=== PATIENT | female | born 1980 | race Caucasian/White ===

== ENCOUNTER 2016-11-02 19:20 | Outpatient (CLI) | payer OTHER ==
[~2016-11-02] VITALS: Ht 165.1 cm; Wt 73.5 kg
[2016-11-02] MEDS: LACTATED RINGER'S 1000ML 1,000 ML IV SCH ×2 (21:10→21:57)
--- NOTE | 2016-11-02 21:24 | HISTORY & PHYSICAL EXAMINATION ---
DATE OF ADMISSION: 11/02/2016 CHIEF COMPLAINT: Uterine contractions, twin intrauterine at 30 weeks 5 days, history of myomectomy entering the uterine cavity. HISTORY OF PRESENT ILLNESS: The patient is a 36-year-old 3, para 2. She had a myomectomy in 2014, it was about 2 years ago. She had 10 cm myoma removed in the posterior uterus. We did enter the uterine cavity. She did wait a year to try to become , presently with natural twins. Her due date is 01/07/2017. She was previously transferred to [facility] at 25 weeks when she had some bleeding, contractions and threatened premature labor. At that time, she had 2 doses of Celestone 12 mg 24 hours apart and then she had Celestone 12 mg 24 hours apart repeated at 28 weeks. Since that time, she has been on Procardia. She has had a lot of trouble with back pain and contractions and came into the hospital for evaluation. The contractions starting to get more regular at about 1:00 p.m. the day of admission and now started to be associated with some light bloody discharge. At the time of admission, monitoring looked good on both twins. PAST MEDICAL HISTORY: She has a boy and a girl, both in good health. ALLERGIES: She has no known drug allergies. PAST SURGICAL HISTORY: She has had a large ovarian cyst removed. She had a myomectomy in 2014. SOCIAL HISTORY: No smoking, no alcohol intake, was previously employed but stopped her job due to her . FAMILY HISTORY: Mom is 58, in good health. Father 59, in good health. One sister and 2 brothers in good health. REVIEW OF SYSTEMS: The patient does have a history of migraines. PHYSICAL EXAMINATION: GENERAL: Well-developed, well-nourished 36-year-old white female in mild distress. EYES: Conjunctivae are pink. Sclerae white. No evidence of jaundice. EARS: Had normal light reflex bilaterally. HEART: Had a regular rhythm. S1 and S2 were normal. BREASTS: Status post augmentation. ABDOMEN: Consistent with a 30-week twin . No CVA tenderness. There is no fundal tenderness. PELVIC: Cervix posterior, about 90% effaced, 2 cm. MUSCULOSKELETAL: Revealed no calf tenderness. IMPRESSIONS OF THIS CASE: Status post breast augmentation, status post removal of a large myoma in 2014, twin and premature labor.
[2016-11-02 21:43] VITALS: Ht 165.1 cm; Wt 73.5 kg
[2016-11-02] MEDS ORDERED: NIFEdipine 10 MG CAP PO SCH (21:43)
[2016-11-02] MEDS ORDERED: NIFE10CA20 PO (21:47)
[2016-11-02] MEDS ORDERED: PRENTAB26 PO (21:47)
== END 2016-11-02 22:30 | disposition short-term general hospital (02) ==
LOC: C.OPB 19:20 → C.LD 19:20 → C.OPB 22:30
PROVIDERS: ATTEND Obstetrics & Gynecology
DX: O62.9 Abnormality of forces of labor, unspecified (principal); Z3A.30 30 weeks gestation of pregnancy

== ENCOUNTER → 2016-11-02 | Outpatient (CLI) | payer OTHER ==
[~2016-11-02] MED LIST: NIFE10CA20 PO; PRENTAB26 PO; TYL325X PO
== END | disposition home or self-care (01) ==
LOC: C.LABSPEC 11:18
PROVIDERS: ATTEND Obstetrics & Gynecology
DX: O99.53 Diseases of the respiratory system complicating the puerperium (principal); J02.9 Acute pharyngitis, unspecified; O30.003 Twin pregnancy, unspecified number of placenta and unspecified number of amniotic sacs, third trimester

== ENCOUNTER 2016-11-13 10:42 | Outpatient (CLI) | payer OTHER ==
[~2016-11-13 10:42] MED LIST changes: -TYL325X PO
== END 2016-11-13 11:20 | disposition home or self-care (01) ==
LOC: C.LD 10:42 → C.OPB 10:42
PROVIDERS: ATTEND Obstetrics & Gynecology
DX: O30.003 Twin pregnancy, unspecified number of placenta and unspecified number of amniotic sacs, third trimester (principal); Z3A.32 32 weeks gestation of pregnancy

== ENCOUNTER 2016-11-17 09:06 | Outpatient (CLI) | payer OTHER ==
--- NOTE | 2016-11-20 08:31 | EDITING REQUIRED CODING QUERY ---
DIAGNOSIS NEEDED To promote full compliance with coding requirements relating to patient care, physician participation is requested in all cases of medical record coder uncertainty. Please assist us with the question(s) below: Coding Question: The patient received care in labor and delivery on 11/17/16 as noted within the record. Please document the diagnosis that is being addressed by the medication/treatment. Provider Response: DIAGNOSIS:twin Prior myomectomy Thank you for your assistance, Addie Murillo - Oliver Filter Operator
== END 2016-11-17 09:50 | disposition home or self-care (01) ==
LOC: C.OPB 09:06 → C.LD 09:06 → C.OPB 09:50
PROVIDERS: ATTEND Obstetrics & Gynecology
DX: O30.003 Twin pregnancy, unspecified number of placenta and unspecified number of amniotic sacs, third trimester (principal); Z3A.32 32 weeks gestation of pregnancy

== ENCOUNTER 2016-11-20 10:31 | Outpatient (CLI) | payer OTHER ==
[~2016-11-20] VITALS: Ht 165.1 cm; Wt 75.0 kg
[2016-11-20 11:15] VITALS: Ht 165.1 cm; Wt 75.0 kg
--- NOTE | 2016-11-25 10:57 | EDITING REQUIRED CODING QUERY ---
DIAGNOSIS NEEDED To promote full compliance with coding requirements relating to patient care, physician participation is requested in all cases of keyboarding clerk uncertainty. Please assist us with the question(s) below: Coding Question: The patient received care in labor and delivery on 11/20/16 as noted within the record. Please document the diagnosis that is being addressed by the medication/treatment. Provider Response: DIAGNOSIS:twin Prior myomectomy Thank you for your assistance, Addie Murillo - Yarn Examiner Skeins
== END 2016-11-20 11:20 | disposition home or self-care (01) ==
LOC: C.OPB 10:31 → C.LD 10:31 → C.OPB 11:20
PROVIDERS: ATTEND Obstetrics & Gynecology
DX: O30.003 Twin pregnancy, unspecified number of placenta and unspecified number of amniotic sacs, third trimester (principal); Z3A.33 33 weeks gestation of pregnancy

== ENCOUNTER 2016-11-21 23:06 | Inpatient (IN) | payer OTHER ==
[~2016-11-21] VITALS: Ht 165.1 cm; Wt 75.0 kg
[2016-11-22] VITALS (20 sets, daily range): BP systolic 109–150; BP diastolic 74–92; PULSE 57–137; TEMP 35–36.8; O2SAT 88–99; Ht 165.1 cm; Wt 75.0 kg
[2016-11-22] MEDS ORDERED: CITRIC ACID/SODIUM CITRATE 15 ML UDC ONE (00:23)
[2016-11-22] MEDS ORDERED: CITRIC ACID/SODIUM CITRATE 15 ML UDC PO ONE (00:30)
[2016-11-22] MEDS ORDERED: CEFOXITIN IV 2,000 MG in DEXTROSE 5% 50ML 50 ML IV ONE (00:30)
--- NOTE | 2016-11-22 00:31 | HISTORY & PHYSICAL EXAMINATION ---
DATE OF ADMISSION: 11/21/2016 CHIEF COMPLAINT: Twin at 33 weeks 2 days, vaginal bleeding and active labor. HISTORY OF PRESENT ILLNESS: The patient is a 36-year-old 3, para 2, general health is good. She has had 2 previous vaginal deliveries and she also had status post breast augmentation 2 years ago. She had removal of a 10 cm uterine fibroid, the defect went right into the endometrial cavity. She then conceived with natural set of twins. Her due date being 01/07/2017. It was diagnosed with a first trimester ultrasound. She has been hospitalized several times, transferred to [facility] at least twice, once at about 25 weeks and once at about 31 weeks. She has been maintained on Procardia 10 mg and she had 2 shots of Celestone at about 27 weeks, another 2 shots at about 30, and she had 1 shot of Celestone about 2 days. She has been having contractions off and on for a long time. One of her transfers to [facility] was for suspected premature labor; however, contractions started to get harder today at about 11:00 and she contracted all day, and at 7, they began to become frequently and she had to breathe through the contractions. On admission to labor and delivery, she was 5 cm dilated, cervix was paper thin and she had a red bleeding. PAST MEDICAL HISTORY: She has 2 children in good health, 1 child has some mental problems. ALLERGIES: She has no known drug allergies. PAST SURGICAL HISTORY: She had breast augmentation 7 years ago and she had removal of a large 10 cm myoma 2 years ago. SOCIAL HISTORY: No smoking. No alcohol intake. She is self employed. FAMILY HISTORY: Mom is 58, is moderately in good health. Father 59, in excellent health. Two brothers and 1 sister, in good health. REVIEW OF SYSTEMS: She has had some complaints of tension headaches over the last weeks. No history of rheumatic fever, heart disease, heart murmur, diabetes, tuberculosis. PHYSICAL EXAMINATION: GENERAL: Well developed, well-nourished 36-year-old white female, alert, oriented x3 and cooperative in intermittent periods of distress. EYES: Conjunctivae are pink, sclerae white, no evidence of jaundice. EARS: Had normal light reflex bilaterally. NOSE: Had normal mucosa. Septum is midline. There were no polyps. THROAT: Mouth had no erythema or evidence of infection. Teeth are in good state of repair. HEAD: Normocephalic, normal distribution of hair. NECK: Supple. Trachea midline. Thyroid is not enlarged. There is no adenopathy appreciated. Both carotids are of good intensity. CHEST: Clear to auscultation and percussion. No wheezes, rales or rhonchi appreciated. HEART: Regular rhythm. S1, S2 are normal. ABDOMEN: About 45 cm fundal height consistent with twin intrauterine . Contractions were palpable sometimes every 2-3 minutes and sometimes they would space to 5-6. There is a well-healed Pfannenstiel incisional scar. There was no calf tenderness. PELVIC: Revealed vertex presentation, membranes were bulging through the cervix 5 cm. Cervix was paper thin, she was bleeding. IMPRESSIONS OF THIS CASE: Status post breast augmentation, status post removal of large 10 cm myoma which went full thickness through the uterus, intrauterine at 33 weeks 2 days and active labor.
[2016-11-22] MEDS ORDERED: MoRPHine SULFATE PF 1 MG/ML 10 ML AMP/VIAL ONE (00:32)
[2016-11-22] MEDS ORDERED: FENTANYL CITRATE INJ 50 MCG/1 ML 2 ML VIAL ONE (00:32)
[2016-11-22 00:54] LABS: HEMATOCRIT 31.1 % (37-47); MEAN CELL VOLUME 89.6 fL (80-100); MEAN CORPUSCULAR HEMOGLOBIN 30.8 pg (25-34); MEAN CORPUSCULAR HGB CONC 34.4 g/dl (32-36); MEAN PLATELET VOLUME 10.9 fL (7.4-10.4); PLATELET COUNT 186 K/uL (130-400); RED BLOOD COUNT 3.47 M/uL (4.2-5.4); WHITE BLOOD COUNT 10.99 K/uL (4.8-10.8)
[2016-11-22] MEDS ORDERED: ONDANSETRON INJ 2 MG/ML 2 ML VIAL ONE (01:24)
[2016-11-22] MEDS ORDERED: OXYTOCIN INJ 10 UNITS/ML VIAL ONE (01:24)
[2016-11-22] MEDS ORDERED: KETOROLAC TROMETHAMINE 30 MG/ML VIAL ONE (01:24)
[2016-11-22 01:26] LABS: BASO % 0.2 %; BASO ABS # 0.02 K/uL (0-0.2); COMPLETE YES; EOS % 0.7 %; IG% 3.5 %; LYMPH % 19.2 %; LYMPH ABS # 2.11 K/uL (1.2-3.4); MONO % 9.2 %; NEUT % 67.2 %
[2016-11-22] MEDS ORDERED: BUPIVACAINE 0.5 % 5 MG/1 ML MPF 30ML VIAL IV ONE (01:45)
[2016-11-22] MEDS ORDERED: SENNA 8.6 MG TAB PO PRN (02:00)
[2016-11-22] MEDS ORDERED: DIPHTHERIA/TETANUS/PERTUSSIS 0.5 ML SYR/VIAL IM. ONE (02:00)
[2016-11-22] MEDS ORDERED: LANOLIN OINT EXT PRN ×2 (02:00)
[2016-11-22] MEDS ORDERED: MAGNESIUM HYDROXIDE SUSP 30 ML UDC PO PRN (02:00)
[2016-11-22] MEDS ORDERED: IBUPROFEN 600 MG TAB PO PRN (02:00)
[2016-11-22] MEDS ORDERED: BENZOCAINE 20% AER SPR 82.5 GM CAN EXT PRN (02:00)
[2016-11-22] MEDS ORDERED: HYDROCORTISONE ACETATE 25 MG SUPP PR PRN (02:00)
[2016-11-22] MEDS ORDERED: SUPERCREAM 0.870 % 15GM JAR EXT PRN (02:00)
[2016-11-22] MEDS ORDERED: OXYTOCIN INJ 20 UNITS in LACTATED RINGER'S 1000ML 1,000 ML IV SCH (02:15)
[2016-11-22] MEDS ORDERED: NALOXONE HCL INJ 0.08 MG in SYRINGE 1.8 ML IV PRN (02:37)
[2016-11-22] MEDS ORDERED: LACTATED RINGER'S 1000ML 500 ML IV PRN (02:37)
[2016-11-22] MEDS ORDERED: SODIUM CHLORIDE 0.9% 1000ML 1,000 ML IV PRN (02:37)
[2016-11-22] MEDS ORDERED: NALOXONE HCL INJ 1 MG in SODIUM CHLORIDE 0.9% 1000ML 1,000 ML IV PRN (02:37)
--- NOTE | 2016-11-22 02:42 | Anesthesiology Progress Note ---
Anesthesia Post Op Note Date & Time Nov 22, 2016 at 02:41 Notes Mental Status: alert / awake / arousable, participated in evaluation Pt Amnestic to Procedure: Yes Nausea / Vomiting: adequately controlled Pain: adequately controlled Airway Patency, RR, SpO2: stable & adequate BP & HR: stable & adequate Hydration State: stable & adequate Neuraxial Anesthesia: was administered, sensory block is resolving Anesthetic Complications: no major complications apparent
[2016-11-22] MEDS ORDERED: NO NARCOTICS OR SEDATIVES SCH (02:45)
[2016-11-22] MEDS ORDERED: ONDANSETRON INJ 2 MG/ML 2 ML VIAL IV PRN ×2 (02:45→19:00)
[2016-11-22] MEDS ORDERED: NALBUPHINE HCL INJ 10 MG/ML AMP IV PRN (02:45)
[2016-11-22] MEDS ORDERED: EpHEDrine SULFATE INJ 50 MG/ML AMP IV PRN (02:45)
[2016-11-22] MEDS ORDERED: PROMETHAZINE HCL INJ 25 MG in SODIUM CHLORIDE 0.9% 50ML 50 ML IV PRN (02:45)
[2016-11-22] MEDS ORDERED: MoRPHine SULFATE 2 MG/ML CARP IV PRN (02:45)
[2016-11-22] MEDS ORDERED: NALOXONE HCL 0.4 MG/1 ML VIAL/CARP IV PRN (02:45)
[2016-11-22] MEDS ORDERED: METOCLOPRAMIDE HCL INJ 20 MG in SODIUM CHLORIDE 0.9% 50ML 50 ML IV PRN (02:45)
[2016-11-22] MEDS ORDERED: MoRPHine SULFATE PF 1 MG/ML 10 ML AMP/VIAL EPI PRN (02:45)
[2016-11-22] MEDS ORDERED: MEPERIDINE HCL 25 MG/ML CARP IV PRN (02:45)
[2016-11-22] MEDS ORDERED: LORAZEPAM INJ 0.5 MG in SYRINGE 0.75 ML IV PRN (02:45)
[2016-11-22] MEDS ORDERED: DiphenhydrAMINE HCL 50 MG/ML VIAL IV PRN ×2 (02:45→19:00)
--- NOTE | 2016-11-22 03:56 | OPERATIVE REPORT ---
DATE OF OPERATION: 11/22/2016 OPERATION: Primary low segment section. INDICATIONS FOR SURGERY: Vaginal bleeding, active labor, intrauterine twin , history of prior full thickness myomectomy. PREOPERATIVE DIAGNOSES: History of myomectomy entering the endometrial cavity, active labor, twin , twin A vertex, twin B transverse lie. SURGEON: Dr. Zee. FAN BALANCER: Dr. Leon. ESTIMATED BLOOD LOSS: 500 mL. ANESTHESIA: Spinal. OPERATIVE FINDINGS AND PROCEDURE: The patient was brought to the OR table, correctly identified by armband and conversation. Spinal anesthesia was administered. Shelley catheter was inserted aseptically in the bladder connected to gravity drainage. Compression stockings were applied. Lower abdomen was painted with an alcohol based sterilizing solution. Midline incision was made in the abdomen secondary to the position of twin B. Incision was carried down to the anterior fascia. Fascia was visualized vertically. Recti muscles were . Peritoneum was carefully raised and entered. Incision was carried down to the pelvic brim and up towards the umbilicus. When we obtained good exposure, we used the bladder blade and then made an incision above the vesicouterine fold, undermined the bladder bluntly and entered the uterine cavity, extended it laterally with the 2 fingers and with fundal pressure delivered twin A, female, cut and clamped the cord. We were then able to rupture the second site and bring the head down of twin B. With fundal pressure, delivered twin B, another female. We then removed the placenta. Placenta was slightly difficult to remove and eventually, we got it out and we got the placenta out. We wipe the uterine cavity, cleaned with a dry sponge. We injected 10 units of Pitocin into the myometrium and brought the uterus out through the incision. We then sutured the myometrium in 2 layers, first interlocking chromic was used to approximate the myometrial layer. The fascial layer was approximated then over this with the heavy duty Vicryl and about 3 interrupted [id number] sutures were used to complete the fascial approximation. The peritoneal edges were then restored with a continuous chromic. Pelvis was cleansed of all blood clots and debris. Uterus, tubes, and ovaries were reinserted in the incision. Careful anatomical approximation of the anterior abdominal wall was performed. Peritoneum was closed with continuous suture of chromic catgut. The fascia was closed with PDS anchoring, 1 knot at the top of the fascial defect, 1 knot the bottom and coming up from the bottom up to the middle, from the top down to the middle and the 2 were tied together with the knot under the fascia. SubQ was approximated with interrupted plain and skin edges were approximated with staple clips. I attest to the content of the Intraoperative Record and any orders documented therein. Any exceptions are noted below. CHUCHO
[2016-11-22] MEDS ORDERED: FERROUS SULFATE 325 MG TAB PO SCH (08:00)
[2016-11-22] MEDS ORDERED: PRENATAL VITAMIN TAB PO SCH (08:00)
[2016-11-22] MEDS ORDERED: INFLUENZA ADMINISTRATION CHARGE ONE (09:00)
[2016-11-22] MEDS ORDERED: INFLUENZA VIRUS QUAD VACCINE 0.5 ML SYR IM. ONE (09:00)
[2016-11-22] MEDS: KETOROLAC TROMETHAMINE 30 MG/ML VIAL IV. PRN ×2 (09:22→16:26)
[2016-11-22] MEDS: DOCUSATE SODIUM 100 MG CAP PO SCH ×2 (09:25→21:00)
[2016-11-22] MEDS: SIMETHICONE 80 MG CHEW PO SCH ×4 (09:25→21:00)
--- NOTE | 2016-11-22 10:10 | Progress Note ---
Subjective Nov 22, 2016. Subjective conversation w/ patient Ambulation: limited ambulation Voiding: wells catheter in place Passing Gas: No Diet Tolerance: Clear Liquids Lochia: Small Review of Systems Constitutional: + fever Objective Vital Signs Date Time Temp Pulse Resp B/P Pulse Ox O2 Delivery O2 Flow Rate FiO2 11/22/16 08:00 16 97 11/22/16 07:00 20 97 11/22/16 06:31 18 97 Nasal Cannula 2.0 11/22/16 06:06 36.8 60 18 144/82 93 Nasal Cannula 2.0 11/22/16 05:30 Room Air 11/22/16 05:30 36.8 70 18 Room Air Physical Exam General Appearance: WELL-APPEARING Respiratory/Chest: lungs clear Abdomen: normal bowel sounds, non tender Fundus: Firm, Non-Tender Extremities: no pedal edema, no calf tenderness Laboratory Results Last 24 Hours Test 11/22/16 00:36 White Blood Count 10.99 K/uL Red Blood Count 3.47 M/uL Hemoglobin 10.7 g/dL Hematocrit 31.1 % Mean Corpuscular Volume 89.6 fL Mean Corpuscular Hemoglobin 30.8 pg Mean Corpuscular Hemoglobin Concent 34.4 g/dl Platelet Count 186 K/uL Mean Platelet Volume 10.9 fL Neutrophils (%) (Auto) 67.2 % Lymphocytes (%) (Auto) 19.2 % Monocytes (%) (Auto) 9.2 % Eosinophils (%) (Auto) 0.7 % Basophils (%) (Auto) 0.2 % Neutrophils # (Auto) 7.38 K/uL Lymphocytes # (Auto) 2.11 K/uL Monocytes # (Auto) 1.01 K/uL Eosinophils # (Auto) 0.08 K/uL Basophils # (Auto) 0.02 K/uL RDW Standard Deviation 45.7 fL RDW Coefficient of Variation 14.0 % Immature Granulocyte % (Auto) 3.5 % Immature Granulocyte # (Auto) 0.39 K/uL Nucleated RBC Absolute Count (auto) 0.10 K/uL Nucleated Red Blood Cells % 0.9 % Assessment and Plan Post-Op Day#: 0
[2016-11-22 19:00] LABS: HEMATOCRIT 35.5 % (37-47); MEAN CELL VOLUME 88.1 fL (80-100); MEAN CORPUSCULAR HEMOGLOBIN 30.3 pg (25-34); MEAN PLATELET VOLUME 10.4 fL (7.4-10.4); PLATELET COUNT 141 K/uL (130-400); RED BLOOD COUNT 4.03 M/uL (4.2-5.4); WHITE BLOOD COUNT 9.42 K/uL (4.8-10.8)
[2016-11-22] MEDS ORDERED: MEPERIDINE HCL 50 MG/ML CARP IV PRN (19:00)
[2016-11-22] MEDS ORDERED: KETOROLAC TROMETHAMINE 30 MG/ML VIAL IV. PRN (19:00)
[2016-11-22] MEDS ORDERED: MEPERIDINE HCL 75 MG/ML CARP IV PRN (19:00)
[2016-11-22] MEDS ORDERED: OXYCODONE/ACETAMINOPHEN 5-325 TAB PO PRN ×2 (19:00)
[2016-11-22] MEDS ORDERED: ZOLPIDEM TARTRATE 5 MG TAB PO PRN (19:00)
[2016-11-22] MEDS ORDERED: DC INTRASPINAL MORPHINE SCH (19:00)
[2016-11-22 19:14] LABS: INR 0.9 (0.9-1.1); PARTIAL THROMBOPLASTIN RATIO 1.1; PROTHROMBIN TIME (PATIENT) 9.3 SECONDS (9.0-12.0)
--- NOTE | 2016-11-22 19:15 | DIAGNOSTIC IMAGING REPORT ---
CHEST ONE VIEW PORTABLE CLINICAL HISTORY: sudden diaphoresis, hypoxia dyspnea COMPARISON STUDY: 09/06/2006 FINDINGS: Findings consistent with mild pulmonary edema. The diaphragms are smooth. There are no consolidative infiltrates. IMPRESSION: Mild pulmonary edema Electronically signed by: Godfrey Chávez M.D. 11/22/2016 7:14 PM Dictated Date/Time: 11/22/2016 7:13 PM
[2016-11-22] MEDS ORDERED: FUROSEMIDE 40 MG/4 ML VIAL ONE (19:23)
[2016-11-22] MEDS ORDERED: FUROSEMIDE 40 MG/4 ML VIAL IV STA (19:26)
[2016-11-22 19:30] LABS: MEAN CORPUSCULAR HGB CONC 34.4 g/dl (32-36)
[2016-11-22 19:31] LABS: COMPLETE YES; EOSINOPHIL % 0.9 %; LYMPH ABS # 1.97 K/uL (1.2-3.4); LYMPHOCYTE % 20.9 %; META ABS # 0.16 K/uL (0-0); METAMYELOCYTE % 1.7 %; MYELOCYTE % 0.9 %; NEUTROPHILS % 74.7 %
[2016-11-22 19:32] LABS: ALB/GLOB RATIO 0.6 (0.9-2); ALKALINE PHOSPHATASE 161 U/L (45-117); ALT/SGPT 15 U/L (12-78); AST/SGOT 32 U/L (15-37); BLOOD UREA NITROGEN 14 mg/dl (7-18); BUN/CREATININE RATIO 16.8 (10-20); CALCIUM 7.9 mg/dl (8.5-10.1); CARBON DIOXIDE 23 mmol/L (21-32); CHLORIDE 105 mmol/L (98-107); CREATININE 0.86 mg/dl (0.60-1.20); GLUCOSE 73 mg/dl (70-99); POTASSIUM 4.3 mmol/L (3.5-5.1); SODIUM 140 mmol/L (136-145); URIC ACID 6.5 mg/dl (2.6-7.2)
[2016-11-22] MEDS ORDERED: NURSING VERBAL MED ORDER ONE (19:45)
[2016-11-22] MEDS ORDERED: FUROSEMIDE INJ 40 MG in SYRINGE 0 ML IV SCH (20:00)
[2016-11-22] MEDS ORDERED: PIPERACILLIN/TAZOBACTAM 4.5 GM/100ML D5W IV STA (20:08)
[2016-11-22] MEDS ORDERED: ACETAMINOPHEN 325 MG TAB PO PRN (20:15)
--- NOTE | 2016-11-22 20:29 | Critical Care Consultation ---
Critical Care Consultation Date of Consultation: Nov 22, 2016. Attending Physician: Say Zee M.D. Reason for Consultation: Acute hypoxia History of Present Illness Patient is a 36-year-old female who delivered 2 spontaneous twin gestations via section secondary to history of a myomectomy. She was having a routine postoperative course until she developed acute shortness of breath and hypoxia despite supplemental oxygen. This prompted a code purple, this is when I evaluated the patient. Patient was experiencing significant respiratory distress was tachycardic and hypertensive approximately 170s systolic normal diastolic. A limited bedside ultrasound revealed diffuse B lines across both lung lee, she appeared to have a decreased EF, and a 2. compression test of the common femoral and popliteal veins were negative for DVT. Suspecting a cardiomyopathy she was given 40 mg of IV Lasix, 1 sublingual mitral glycerin was plowed her blood pressure down to 140s over 80, and she was transferred to the ICU for further evaluation. A stat echocardiogram was ordered and Dr. Zelaya is evaluating at the bedside. Past Medical/Surgical History #1 postop day 0 from a section for twin at 33 weeks and 2 days in active labor #2 breast augmentation #3 history of myomectomy Social History Smoking Status: Never Smoker Marital Status: single Housing Status: lives with significant other Allergies Coded Allergies: Hydrocodone (Verified Adverse Reaction, Unknown, NAUSEA VOMITING, 11/22/16) Oxycodone (Verified Adverse Reaction, Unknown, NAUSEA VOMITING, 11/22/16) Home Medications Scheduled Multivit/Min/Iron/Fol Ac/Pren ( Vitamin), 1 TAB PO DAILY Miscellaneous Medications Nifedipine (Procardia), 10 MG PO Current Inpatient Medications Current Inpatient Medications Medications (Trade) Dose Ordered Sig/Sae Route Start Time Stop Time Status Last Admin Dose Admin Oxytocin/Lactated Ringer's (Pitocin Inj/Lr 1000ml) 1,002 ml @ 125 mls/hr Q8H1M IV 11/22/16 02:15 11/23/16 02:17 11/22/16 12:13 125 MLS/HR Ketorolac Tromethamine (Toradol Inj) 30 mg Q6H PRN IV. 11/22/16 19:00 11/27/16 18:59 Meperidine HCl (Demerol Inj) 50 mg Q4H PRN IV 11/22/16 19:00 3/5/17 18:59 Meperidine HCl (Demerol Inj) 75 mg Q4H PRN IV 11/22/16 19:00 12/06/16 18:59 Oxycodone/ Acetaminophen (Percocet 5-325mg Tab) 1 tab Q4H PRN PO 11/22/16 19:00 12/06/16 18:59 Oxycodone/ Acetaminophen (Percocet 5-325mg Tab) 2 tab Q4H PRN PO 11/22/16 19:00 12/06/16 18:59 Ibuprofen (Motrin Tab) 600 mg Q4H PRN PO 11/22/16 02:00 12/22/16 01:59 Ondansetron HCl (Zofran Inj) 4 mg Q4H PRN IV 11/22/16 19:00 12/22/16 18:59 Prenat Multivit/ Roving Carrier/Iron/Folic Ac ( Vitamin Tab) 1 tab DAILY PO 11/22/16 08:00 12/22/16 07:59 11/22/16 09:25 1 TAB Bisacodyl (Dulcolax Tab) 5 mg HS ONCE PO 11/23/16 22:00 11/23/16 22:01 Bisacodyl (Dulcolax Supp) 10 mg PRN PRN AL 11/24/16 02:00 12/24/16 01:59 Docusate Sodium (coLACE CAP) 100 mg BID PO 11/22/16 08:00 12/22/16 07:59 11/22/16 09:25 100 MG Magnesium Hydroxide (Milk Of Magnesia Susp) 30 ml HS PRN PO 11/22/16 02:00 12/22/16 01:59 Ferrous Sulfate (Feosol Tab) 325 mg DAILY PO 11/22/16 08:00 12/22/16 07:59 11/22/16 09:25 325 MG Cocaine HCl (Supercream 0.870% Cr) BID PRN EXT 11/22/16 02:00 12/06/16 01:59 Lanolin (Lanolin Oint) PRN PRN EXT 11/22/16 02:00 12/22/16 01:59 Hydrocortisone Acetate (Anusol Hc Supp) 25 mg BID PRN AL 11/22/16 02:00 12/22/16 01:59 Benzocaine (Dermoplast Aero Spr) 1 appln PRN PRN EXT 11/22/16 02:00 12/22/16 01:59 Zolpidem Tartrate (Ambien Tab) 5 mg HSZ PRN PO 11/22/16 19:00 12/22/16 18:59 Simethicone (Mylicon Chew Tab) 80 mg QID PO 11/22/16 08:00 12/22/16 08:59 11/22/16 17:15 80 MG Diphenhydramine HCl (Benadryl Cap) 25 mg QID PRN PO 11/22/16 19:00 12/22/16 18:59 Diphenhydramine HCl (Benadryl Inj) 25 mg QID PRN IV 11/22/16 19:00 12/22/16 18:59 Senna (Senokot Tab) 17.2 mg HS PRN PO 11/22/16 02:00 12/22/16 01:59 Naloxone HCl (Narcan Inj) 0.1 mg UD PRN IV 11/22/16 02:45 11/23/16 02:44 Diphenhydramine HCl (Benadryl Inj) 25 mg Q6H PRN IV 11/22/16 02:45 11/23/16 02:44 11/22/16 09:19 25 MG Nalbuphine HCl (Nubain Inj) 5 mg Q10M PRN IV 11/22/16 02:45 11/23/16 02:44 Ondansetron HCl (Zofran Inj) 4 mg Q6H PRN IV 11/22/16 02:45 11/23/16 02:44 Ketorolac Tromethamine (Toradol Inj) 30 mg Q6H PRN IV. 11/22/16 02:45 11/23/16 02:44 11/22/16 16:26 30 MG Meperidine HCl (Demerol Inj) 25 mg Q15M PRN IV 11/22/16 02:45 11/23/16 02:44 Diphenhydramine HCl (Benadryl Cap) 50 mg HS PRN PO 11/22/16 02:45 11/23/16 02:44 Morphine Sulfate 2 mg 2 mg Q6H PRN IV 11/22/16 02:45 12/06/16 02:44 Lactated Ringer's (Lr 1000ml) 500 ml @ 999 mls/hr Q31M PRN IV 11/22/16 02:37 11/23/16 02:36 Ephedrine Sulfate (EpHEDrine SULFATE INJ) 10 mg Q5M PRN IV 11/22/16 02:45 11/23/16 02:44 Morphine Sulfate 0.2 mg 0.2 mg TODAY PRN EPI 11/22/16 02:45 Sodium Chloride (Nss 1000ml) 1,000 ml @ 15 mls/hr Q24H PRN IV 11/22/16 02:37 12/22/16 02:36 Review of Systems A 10 point review of systems has been reviewed and is otherwise negative Constitutional: + chills, No fever, No sweats Eyes: No worsening of vision Respiratory: + cough, + dyspnea at rest, + dyspnea on exertion, + shortness of breath, No hemoptysis Cardiovascular: No chest pain, No edema, No orthopnea Abdomen: No nausea, No pain Genitourinary - Female: + problem reported (lochia has not increased) Physical Exam Date Time Temp Pulse Resp B/P Pulse Ox O2 Delivery O2 Flow Rate FiO2 11/22/16 15:00 20 97 11/22/16 14:00 16 96 11/22/16 13:00 20 97 11/22/16 12:20 97 Nasal Cannula 2.0 11/22/16 12:20 36.5 57 16 150/92 98 Nasal Cannula 11/22/16 12:00 20 98 11/22/16 11:00 20 96 11/22/16 10:00 16 97 11/22/16 09:00 20 98 11/22/16 08:00 35.0 63 20 137/85 97 Nasal Cannula 11/22/16 08:00 16 97 11/22/16 08:00 97 Nasal Cannula 2.0 11/22/16 07:00 20 97 11/22/16 06:31 18 97 Nasal Cannula 2.0 11/22/16 06:06 36.8 60 18 144/82 93 Nasal Cannula 2.0 11/22/16 05:30 Room Air 11/22/16 05:30 36.8 70 18 Room Air General Appearance: moderate distress Head: normocephalic, atraumatic Eyes: PERRLA, no discharge, EOMI, sclerae normal Neck: normal range of motion, no tenderness, trachea midline, no stridor Respiratory: accessory muscle use, rales (crossed both lung lee up to the apex) Cardiovasular: no M/G/R, normal peripheral pulses (1+ pulses poor capillary refill), irregular rate (tachycardia), other (patient initially had capillary refill greater than 3 seconds) Abdomen: suprapubic TTP (mild tenderness at incision site, no shadowing on dressing) Back: normal inspection, no midline tenderness, no CVA tenderness, no paravertebral TTP Edema: Bilateral LE (1+) Neuro: alert, oriented x 3, normal motor exam, normal sensation, normal cerebellar exam, normal speech Laboratory Results Last 24 Hours Test 11/22/16 00:36 11/22/16 18:36 11/22/16 19:33 White Blood Count 10.99 K/uL 9.42 K/uL Red Blood Count 3.47 M/uL 4.03 M/uL Hemoglobin 10.7 g/dL 12.2 g/dL Hematocrit 31.1 % 35.5 % Mean Corpuscular Volume 89.6 fL 88.1 fL Mean Corpuscular Hemoglobin 30.8 pg 30.3 pg Mean Corpuscular Hemoglobin Concent 34.4 g/dl 34.4 g/dl Platelet Count 186 K/uL 141 K/uL Mean Platelet Volume 10.9 fL 10.4 fL Neutrophils (%) (Auto) 67.2 % Lymphocytes (%) (Auto) 19.2 % Monocytes (%) (Auto) 9.2 % Eosinophils (%) (Auto) 0.7 % Basophils (%) (Auto) 0.2 % Neutrophils # (Auto) 7.38 K/uL Lymphocytes # (Auto) 2.11 K/uL Monocytes # (Auto) 1.01 K/uL Eosinophils # (Auto) 0.08 K/uL Basophils # (Auto) 0.02 K/uL RDW Standard Deviation 45.7 fL 44.8 fL RDW Coefficient of Variation 14.0 % 13.9 % Immature Granulocyte % (Auto) 3.5 % Immature Granulocyte # (Auto) 0.39 K/uL Nucleated RBC Absolute Count (auto) 0.10 K/uL 0.14 K/uL Nucleated Red Blood Cells % 0.9 % 1.4 % Neutrophils % (Manual) 74.7 % Lymphocytes % (Manual) 20.9 % Monocytes % (Manual) 0.9 % Eosinophils % (Manual) 0.9 % Metamyelocytes % 1.7 % Myelocytes % 0.9 % Neutrophils # (Manual) 7.04 K/uL Total Absolute Neutrophils 7.04 K/uL Lymphocytes # (Manual) 1.97 K/uL Total Absolute Lymphocytes 1.97 K/uL Monocytes # (Manual) 0.08 K/uL Eosinophils # (Manual) 0.08 K/uL Metamyelocytes # 0.16 K/uL Myelocytes # 0.08 K/uL Prothrombin Time 9.3 SECONDS Prothromb Time International Ratio 0.9 Activated Partial Thromboplast Time 27.3 SECONDS Partial Thromboplastin Ratio 1.1 Fibrin Degradation Products 10-40 mcg/ml Sodium Level 140 mmol/L Potassium Level 4.3 mmol/L Chloride Level 105 mmol/L Carbon Dioxide Level 23 mmol/L Anion Gap 12.0 mmol/L Blood Urea Nitrogen 14 mg/dl Creatinine 0.86 mg/dl Est Creatinine Clear Calc Drug Dose 90.8 ml/min Estimated GFR () 100.0 Estimated GFR (Non- 86.3 BUN/Creatinine Ratio 16.8 Random Glucose 73 mg/dl Uric Acid 6.5 mg/dl Calcium Level 7.9 mg/dl Total Bilirubin 0.2 mg/dl Aspartate Amino Transf (AST/SGOT) 32 U/L Alanine Aminotransferase (ALT/SGPT) 15 U/L Alkaline Phosphatase 161 U/L Lactate Dehydrogenase 368 U/L Total Creatine Kinase 111 U/L Creatine Kinase MB 1.1 ng/ml Creatine Kinase MB Ratio 1.0 Troponin I < 0.015 ng/ml Pro-B-Type Natriuretic Peptide 566 pg/ml Total Protein 5.7 gm/dl Albumin 2.2 gm/dl Globulin 3.5 gm/dl Albumin/Globulin Ratio 0.6 Thyroid Stimulating Hormone (TSH) 3.710 uIu/ml Free Thyroxine 1.00 ng/dl Lactic Acid Level 1.8 mmol/L Ionized Calcium 1.12 mmol/l Diagnostic Results EKG obtained at 1900 revealed normal axis normal intervals rate of 107 rhythm sinus tachycardia no ST segment abnormalities no previous for comparison. CHEST ONE VIEW PORTABLE CLINICAL HISTORY: sudden diaphoresis, hypoxia dyspnea COMPARISON STUDY: 09/06/2006 FINDINGS: Findings consistent with mild pulmonary edema. The diaphragms are smooth. There are no consolidative infiltrates. IMPRESSION: Mild pulmonary edema Electronically signed by: Godfrey Chávez M.D. 11/22/2016 7:14 PM Dictated Date/Time: 11/22/2016 7:13 PM I have also independently reviewed the images Assessment & Plan (1) cardiomyopathy Patient initially hypertensive into the 170 systolic - Treated with one sublingual nitroglycerin brought the blood pressure to 130s 140 systolic - Significant symptomatic improvement - CPAP EPAP setting of 10 cm of water significant improvement - Will add captopril 6.25 by mouth 1 now. - Bedside echo performed by cardiology globally reduced EF 45% (2) Acute respiratory failure with hypoxia Secondary to cardiomyopathy - Given a total of 80 mg of Lasix - Significant improvement with CPAP (3) twins 33 weeks 2 days Twins currently at [facility] [address] secondary to prematurity (4) prior myomectomy full thickness (5) Volume overload Secondary to cardiomyopathy 80 mg IV Lasix given (6) S/P section Discussed with armature coil winder Dr. Zee, cardiology Dr. Zelaya, and [facility] internal medicine Dr. Mike. Patient at risk for further cardiac decompensation, would benefit transfer to [facility] [address] for further cardiac evaluation in case she would need ventricular assist devices. Patient appears to be hemodynamically stable, significant improvement after 1 sublingual nitroglycerin, heart rate has started to normalize blood pressures within normal range and tolerating CPAP. Stable for ground transport to [facility]. No indication for I am tropes at this point. We have adequate venous access. Sepsis is still in the differential, we have sent blood cultures and gave her an initial dose of vancomycin and Zosyn. At this time coagulation studies are still pending. I do not feel that this is corporate sales representative of an acute PE given global dysfunction nor preeclampsia, disseminated intravascular coagulation. I have personally spent 60 minutes of critical care time in the direct management of this patient. This is a life/limb threatening event. This includes time spent evaluating patient, direct bedside care, chart review, placing orders, interpretation of diagnostic studies, discussion with consultants, patient, and family members, as well as other required patient management activities. This time is exclusive of all separately billable procedures, and teaching time and separate from and in addition to any other critical care service time. Problem Qualifiers (1) Volume overload: Hypervolemia type: other Qualified Codes: E87.79 - Other fluid overload
[2016-11-22] MEDS ORDERED: VANCOMYCIN INJ 1,000 MG in SODIUM CHLORIDE 0.9% 250ML 250 ML IV ONE (20:30)
[2016-11-22 20:45] LABS: FIBRINOGEN* 300 mg/dl (184-400)
[2016-11-22] MEDS ORDERED: TYL325X PO (20:50)
--- NOTE | 2016-11-22 20:53 | Discharge Instructions ---
Discharge Instructions Admission Reason for Admission: Active Labor, Prior Myomectomy Full Thickness, And Discharge Discharge Diagnosis / Problem: peripartum cardiomyopathy Discharge Goals Goal(s): Decrease discomfort, Improve function Activity Recommendations Activity Level: Bedrest . Additional Information Patient informed of condition: Yes Advance Directives: Yes DNR: No Level of Care: Other (transfered to [facility]) Communicable Disease: No Prognosis: Stable Oxygen at (LPM): bipap Shelley Catheter: Yes Current Hospital Diet Patient's current hospital diet: Clear Liquid Diet Discharge Diet Recommended Diet: AHA Diet (Heart Healthy) Procedures Procedures Performed: PRIMARY LOW TRANSVERSE CAESAREAN SECTION Pending Studies Studies pending at discharge: yes List of pending studies: blood cultures urine cultures dic workup Physician Orders On Transfer Vital Signs: every 8hrs Additional Orders: PLEASE REFER TO MEDICATION RECONCILIATION FOR ACCURATE MEDICATIONS Medical Emergencies . Who to Call and When: Medical Emergencies: If at any time you feel your situation is an emergency, please call 911 immediately. . Non-Emergent Contact Non-Emergency issues call your: Primary Care Provider . . "Provider Documentation" section prepared by Jorge Whitaker. Core Measure Problem Core Measures: None
--- NOTE | 2016-11-22 20:55 | ECHOCARDIOGRAM REPORT ---
*NOTICE TO RECEIVING DEMOCRAT AGENCY This information is strictly Confidential and protected under [place] law. [place] law prohibits you from making any further disclosure of this information unless further disclosure is expressly permitted by the written consent of the person to whom it pertains or is authorized by law. A general authorization for the release of medical or other information is not sufficient for this purpose. Hospital accepts no responsibility if the information is made available to any other person, INCLUDING THE PATIENT. Interpretation Summary * Name: Margie bolanos Study Date: 11/22/2016 08:15 PM BP: 150/92 mmHg * MRN: [id number] Patient Location: [facility] HR: 57 * : 1980 (M/d/yyyy) Gender: Female Height: 65 in * Age: 36 yrs Weight: 165 lb * Ordering Physician: Juni Zelaya MD * Performed By: Paulina Shanks RDCS * * Reason For Study: Evaluate for post cardiomyopathy * BSA: 1.8 m2 * -- Conclusions -- * 1. Normal left ventricular size with mildly reduced systolic function. Estimated EF 45%. Mild global hypokinesis with relative sparing of the inferolateral wall. No significant left ventricular hypertrophy. * 2. Trace mitral regurgitation. * 3. No prior study available for comparison. Procedure Details * A complete two-dimensional transthoracic echocardiogram was performed (2D, M-mode, Doppler and color flow Doppler). Left Ventricle * Normal left ventricular size with mildly reduced systolic function. Estimated EF 45%. Mild global hypokinesis with relative sparing of the inferolateral wall. No significant left ventricular hypertrophy. Right Ventricle * The right ventricle is normal in size and function. * The right ventricular systolic function is normal as assessed by tricuspid annular plane systolic excursion (TAPSE) (normal >1.5 cm). Atria * The left atrial size is normal. * Right atrial size is normal. * There is no evidence of atrial septal defect, but resolution does not allow assessment for a patent foramen ovale. Mitral Valve * The mitral valve is normal in structure and function. * There is no mitral valve stenosis. * There is trace mitral regurgitation. Tricuspid Valve * The tricuspid valve is not well visualized. * There is no tricuspid stenosis. * Significant tricuspid regurgitation is absent. Aortic Valve * The aortic valve is normal in structure and function. * No hemodynamically significant valvular aortic stenosis. * No aortic regurgitation is present. Pulmonic Valve * The pulmonary valve is inadequately visualized, but the Doppler data is adequate for interpretation. * There is no pulmonic valvular stenosis. * There is no significant pulmonary regurgitation. Great Vessels * The aortic root is normal size. * Ascending aorta of normal dimension Pericardium/Pleural * There is no pericardial effusion. Great Vessels * Normal inferior vena cava size and collapsability with sniff indicates a normal right atrial pressure of 3 mmHg MMode 2D Measurements and Calculations IVSd 0.87 cm LVIDd 4.6 cm LVIDs 3.4 cm LVPWd 1.1 cm IVS/LVPW 0.80 FS 24.7 % EDV(Teich) 96.2 ml ESV(Teich) 48.9 ml EF(Teich) 49.1 % EDV(cubed) 95.8 ml ESV(cubed) 40.8 ml EF(cubed) 57.4 % LV mass(C)d 153.0 grams LV mass(C)dI 83.9 grams/m\S\2 SV(Teich) 47.2 ml SI(Teich) 25.9 ml/m\S\2 SV(cubed) 55.0 ml SI(cubed) 30.2 ml/m\S\2 Ao root diam 3.0 cm Ao root area 7.1 cm\S\2 ACS 1.6 cm asc Aorta Diam 2.7 cm LVOT diam 2.1 cm LVOT area 3.6 cm\S\2 LVAd ap4 28.8 cm\S\2 LVLd ap4 7.7 cm EDV(MOD-sp4) 92.7 ml EDV(sp4-el) 90.8 ml LVAs ap4 20.3 cm\S\2 LVLs ap4 7.2 cm ESV(MOD-sp4) 52.5 ml ESV(sp4-el) 48.6 ml EF(MOD-sp4) 43.4 % EF(sp4-el) 46.4 % LVAd ap2 30.8 cm\S\2 LVLd ap2 7.8 cm EDV(MOD-sp2) 104.9 ml EDV(sp2-el) 103.8 ml LVAs ap2 22.1 cm\S\2 LVLs ap2 7.1 cm ESV(MOD-sp2) 61.3 ml ESV(sp2-el) 58.8 ml EF(MOD-sp2) 41.5 % EF(sp2-el) 43.3 % LVLd %diff 1.4 % EDV(MOD-bp) 107.3 ml LVLs %diff -1.22 % ESV(MOD-bp) 53.3 ml EF(MOD-bp) 50.3 % SV(MOD-sp4) 40.2 ml SI(MOD-sp4) 22.0 ml/m\S\2 SV(MOD-sp2) 43.5 ml SI(MOD-sp2) 23.9 ml/m\S\2 SV(MOD-bp) 54.0 ml SI(MOD-bp) 29.6 ml/m\S\2 SV(sp4-el) 42.2 ml SI(sp4-el) 23.1 ml/m\S\2 SV(sp2-el) 45.0 ml SI(sp2-el) 24.7 ml/m\S\2 Doppler Measurements and Calculations MV E max dolores 84.1 cm/sec MV A max dolores 78.7 cm/sec MV E/A 1.1 MV dec time 0.25 sec Ao V2 max 101.2 cm/sec Ao max PG 4.1 mmHg Ao max PG (full) 2.6 mmHg CASSI(V,A) 2.2 cm\S\2 CASSI(V,D) 2.2 cm\S\2 LV V1 max PG 1.5 mmHg LV V1 max 60.4 cm/sec MR max dolores 493.7 cm/sec MR max PG 97.5 mmHg MR mean dolores 400.1 cm/sec MR mean PG 70.0 mmHg MR VTI 119.5 cm PA V2 max 85.6 cm/sec PA max PG 2.9 mmHg
[2016-11-22] MEDS ORDERED: PIPERACILL/TAZOBAC IV 4.5 GM in DEXTROSE 5% 100ML IV ONE (21:00)
[2016-11-22] MEDS ORDERED: CAPTOPRIL 12.5 MG TAB PO ONE (21:30)
--- NOTE | 2016-11-22 22:06 | CARDIOLOGY CONSULTATION ---
DATE OF CONSULTATION: 11/22/2016 TIME: 20:56 p.m. CONSULTING PHYSICIAN: Dr. Tsang. REASON FOR CONSULTATION: Possible peripartum cardiomyopathy. HISTORY OF PRESENT ILLNESS: Mrs. Cullen is a very pleasant 36-year-old female with no significant cardiac history, who delivered twin daughters this morning via at approximately 1:00 a.m. She states that she had no complications from a cardiac standpoint from her two previous deliveries years ago. She went into labor and delivered earlier this morning at 33 weeks and 2 days, according to records. She states that last evening, she noted that her lower extremities were much more swollen than usual. In fact, she states that she has never had swelling to this degree. She then delivered her children earlier this morning, before they were transferred to [facility] [place]. She then felt okay for the most part throughout the day, until acutely becoming short of breath earlier this evening. She developed acute shortness of breath, cough and hypoxia despite supplemental oxygen, according to Dr. Tsang of the geophysical prospecting surveyor service. She states that she was lying down at this time. A code purple was called and Dr. Tsang presented to the bedside. He found her to be in significant respiratory distress, tachycardic, and hypertensive with systolic blood pressures approximately in the 170s. He did a limited bedside ultrasound, which demonstrated diffuse B-lines across both lung lee and he felt as though her LV ejection fraction was reduced. He gave her sublingual nitroglycerin and IV Lasix 40 mg. Her blood pressure significantly improved with systolic pressures down into the 140s. He also started her on BiPAP to help support her respiratory distress. He then called for a stat echo and also asked for a cardiology consultation following the echo. Her echocardiogram demonstrated mildly reduced LV systolic function with global hypokinesis. There were no significant valvular abnormalities noted. She already started to diurese and felt much better from a breathing standpoint. She admitted that her breathing was much improved, but she was still on BiPAP. She states that her breathing was poor in any position earlier this evening, but she denied any chest pain. She denied syncope, near syncope, palpitations. Her abdominal pain has not been severe following . She denies nausea, vomiting, diarrhea or any significant bleeding. She was not certain if her swelling had gotten worse. REVIEW OF SYSTEMS: As above and otherwise, review of systems was negative. PAST MEDICAL HISTORY: 1. , postop day zero. 2. Breast augmentation. 3. Status post removal of a large 10-cm myoma 2 years ago. HOSPITAL MEDICATIONS: Include Benadryl, Colace, ferrous sulfate, Toradol, morphine p.r.n., vitamin, simethicone. ALLERGIES: No known drug allergies. SHE STATES THAT SHE DID NOT TOLERATE HYDROCODONE OR OXYCODONE. SOCIAL HISTORY: Denies tobacco, alcohol or drug abuse. She is and lives at home with her and 2 other children. He did present to the bedside. FAMILY HISTORY: No known premature CAD in first-degree relatives. She states that there is some cardiac history in her more extended family on her mother's side. PHYSICAL EXAMINATION: VITAL SIGNS: Temperature 36.7 degrees, heart rate was in the, mostly, 105-115 range, respiration rate 20, blood pressure last charted at 109/74 mmHg. Oxygen saturation is 97%. GENERAL: No acute distress, on BiPAP following diuresis. She is also alert and oriented. HEENT: Anicteric sclerae. NECK: No appreciable JVD, on BiPAP. Normal carotid upstrokes bilaterally. No bruits noted. CARDIAC: PMI was nonpalpable. There was no ventricular heave, regular, but tachycardic. Normal S1, S2. There were no audible murmurs, rubs or gallops. LUNGS: Clear to auscultation bilaterally without wheezes, rales or rhonchi. ABDOMEN: Soft, no significant tenderness in the upper quadrants. No palpable mass. Surgical dressing in place. Hypoactive bowel sounds. EXTREMITIES: Trace bilateral lower extremity edema. No cyanosis. 2+ radial pulses bilaterally. 2+ dorsalis pedis pulses bilaterally. No palpable cords. PSYCHIATRIC: Affect appears appropriate. CHEST X-RAY: Image personally reviewed. Prominent pulmonary vasculature. No infiltrate. LABORATORY DATA: White blood cell count 9.4, hemoglobin 12.2, platelets 141. Sodium 140, potassium 4.3, BUN 14, creatinine 0.86. AST 32, ALT 15. Pro-brain natriuretic peptide 566, which is elevated mildly. Troponin undetectable. Albumin 2.2, TSH 3.71. INR 0.9. ECG personally reviewed. Sinus tachycardia. Echocardiogram images were personally reviewed at the bedside in the ICU. LV systolic function appeared to be mildly reduced with an estimated EF of 45% with mild global hypokinesis with relative sparing of the inferolateral wall. There was non-significant mitral regurgitation. Her fluid balance is not complete at this time, but she was diuresing briskly with 40 mg of IV Lasix. ASSESSMENT AND PLAN: 1. Peripartum cardiomyopathy: She does appear to have a mild cardiomyopathy, which is a new diagnosis for her. She acutely became symptomatic following delivery. Recommend MITCHELL inhibitor. Can start captopril 6.25 mg p.o. t.i.d. and titrate as able. Would also recommend metoprolol succinate or carvedilol, but would first like to treat her decompensated heart failure. She does not require inotropic support at this time and overall, appears to have improved with measures performed so far. Would repeat echo later during her hospitalization. Would monitor ECGs and maintain telemetry. Monitor closely for arrhythmia. 2. Acute systolic congestive heart failure: She did present with acute congestive heart failure and is responding with diuretic therapy, likely secondary to peripartum cardiomyopathy, as noted above. Agree with Lasix. Monitor I's and O's, renal function and electrolytes carefully. Can redose, if necessary, following reevaluation after response to her most recent dose of Lasix. Monitor I's and O's and daily weights. 3. Tachycardia: Likely secondary to reduced left ventricular systolic function to maintain an adequate cardiac output. Would introduce beta -mary anne therapy after she shows further improvement, as noted above. 4. Disposition: The decision has been made to transfer her to [facility] in [place] for further management, as her babies were also transferred there earlier today. Her cardiac issues were discussed with her and her . Any questions were answered. Plan of care and patient care were also discussed with Dr. Zee as well as the geophysical prospecting surveyor, Dr. Tsang. A copy of her echo images was provided for her to accompany her on her transfer to [facility]. Fifty minutes critical care time spent, including interpreting stat bedside echo images, counseling patient and her and coordinating care with other providers. Thank you for allowing me to participate in the care of Ms. Cullen. CHUCHO
[2016-11-22] MEDS ORDERED: FUROSEMIDE 10 MG/ML 10 ML VIAL IV ONE (23:54)
--- NOTE | 2016-11-22 23:56 | INTERNAL MEDICINE CONSULTATION ---
DATE OF CONSULTATION: 11/22/2016 CHIEF COMPLAINT: Hypoxia. HISTORY OF PRESENT ILLNESS: This is a 36-year-old female with no significant past medical history, was status post of a twin at 33 weeks and 2 days and later in the day, she complained of shortness of breath. She was hypoxic, requiring oxygen supplementation and BiPAP. The patient says yesterday, she was walking in the mall and she suddenly started to have contractions and she also felt puffed up in the face and legs and she came to the hospital, she had the middle of the night and after that, she was feeling fine. She was on 2 liters and saturating okay and suddenly, later in the evening, she became short of breath, hypoxic, saturating in the low 80s. Then, she was placed on a nonrebreather and then on a BiPAP. Chest x-ray then showed pulmonary edema. She received 2 doses of IV Lasix with good urinary output and shortness of breath seemed to improve.But later she complained of some mild chest discomfort and IV morphine was given, but later, she was comfortable and her dynamics were stable. A bedside echo was done, which showed EF of around 45% and the labs were unremarkable, except for mild elevation of BNP. Lactic acid was normal.She also had a temp spike later. At that time, it was decided to give her a dose of Zosyn and vancomycin. At that time, it was decided to transfer her to [place], as her twin babies were premature, they were already transferred to [place] for care and because of her ongoing issues with the pulmonary edema and peripartum cardiomyopathy, it was thought to be better served if the patient transferred to [place] for further management and family is in agreement and called [place] and they agreed for transfer. ALLERGIES: HYDROCODONE AND OXYCODONE. PAST MEDICAL HISTORY: Allergic rhinitis, endometriosis, fibroid, migraines. PAST SURGICAL HISTORY: Removal of fibroid uterus tumor, breast augmentation, ovarian cyst removal at the age of 16. MEDICATIONS: Prior to admission, patient was on Procardia 10 mg p.o. t.i.d., vitamins. FAMILY HISTORY: Mother had seizures. SOCIAL HISTORY: Former smoker, quit in 2002. No alcohol use. No drug use. 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 . REVIEW OF SYMPTOMS: As per HPI. Rest of review of systems negative. PHYSICAL EXAMINATION: GENERAL: The patient is of moderate build, not in distress. VITAL SIGNS: T-max 101 degrees Fahrenheit, pulse currently is 105, respiratory rate 24, blood pressure was 144/82, oxygen 100% on BiPAP. HEENT: No pallor, no icterus. NECK: No JVD or neck masses. CARDIOVASCULAR: S1, S2 heard, regular rate and rhythm, no murmur, no gallop. RESPIRATORY SYSTEM: Clear to auscultation bilaterally. No wheezing. No crackles. ABDOMEN: Soft, bowel sounds present. MUSCULOSKELETAL: surgical site in a dressing. No drainage or erythema seen. EXTREMITIES: No edema, no erythema. LABORATORIES: Sodium 140, potassium 4.3, chloride 105, bicarbonate 25, BUN 14, creatinine 0.8, serum glucose 73. Lactic acid 1.8, uric acid 6.5, calcium 7.9, ionized calcium 1.12. Total bilirubin 0.2, AST 32, ALT 15, alkaline phosphatase 151, LDH 368, total creatinine kinase 111, troponin I less than 0.015. BNP 566. TSH 3.7, free T4 1. PT 9.3, INR 0.9, APTT 27.3. Fibrinogen 300, fibrin degradation products 10-40. Chest x-ray, mild pulmonary edema. EKG, sinus tachycardia with rate of 107, no acute ST changes seen. Echocardiogram, normal left ventricular size with mildly reduced systolic function. EF of around 45%, mild global hypokinesis with relative sparing of the inferolateral wall, trace mitral regurgitation. ASSESSMENT AND PLAN: This is a 36-year-old female with suddenly developed hypoxia. 1. Hypoxia, s pulmonary edema, most likely cardiomyopathy, EF of around 45%. Has global hypokinesis. The patient received 2 doses of IV Lasix 40 mg. requiring BiPAP; feeling better now. Because of the cardiomyopathy and already her kids in [place], the patient is transferred to [place]. 2. Hypertension. The patient received a dose of captopril and nitroglycerin. We will follow the blood pressure. 3. Status post . Delivered twins last night. Twins were at 33 weeks; so, they were transferred to [place] for care. Follow up with CORPORATE COMPLIANCE DIRECTOR. Deep venous thrombosis prophylaxis, SCDs and TEDs. DISPOSITION: Plan to transfer to [place]. JULESD
--- NOTE | 2016-11-23 09:45 | DISCHARGE SUMMARY ---
Mrs. Cullen was patient. She had a 10 cm myomectomy performed about 2 years ago, it was a full-thickness defect into the myometrium. She then about a year later became with twins, has been followed in the office, has had problems with vaginal bleeding, premature labor. She was shipped to [facility] twice, once when she was about 25 weeks with bleeding and cervix about 2 cm, and then several weeks later when she was about 31 weeks where once again she had symptoms of contractions which eventually stopped. She was treated with Celestone in anticipation of an early delivery. She was treated once at about 25 weeks with 2 injections, a second time about 31 weeks, and then she received 1 injection of Celestone about 3 days prior to admission. She was admitted. She had been walking around in the mall and started to have contractions, they were strong enough that she was breathing through her contractions. She was seen in maternity and evaluated. At that time, she was having strong contractions, she was having some vaginal bleeding, and pelvic exam revealed the cervix to be 5 cm, paper thin, with membranes bulging. Due to this advanced dilatation and her complicated history, she was not deemed a candidate for transfer. She was scheduled for a section due to the previous myomectomy. Bedside ultrasound revealed the twin B to be transverse lie, fundal, with the feet up. Due to that position, we did a midline incision at the time of surgery. Surgery was done under spinal anesthesia. Both infants were delivered without difficulty and attended to by 2 pediatricians that were present at the time of the delivery. Estimated blood loss at surgery was about 600 mL. Her preoperative hemoglobin was 10.7, hematocrit 31.1. Postoperatively, hemoglobin was 12.2, hematocrit 35.5. Postoperatively, the patient was maintained on nasal oxygen, we were never quite able to get her off the oxygen, and less than 24 hours after delivery, she experienced an episode of shortness of breath, cyanosis, and on high-flow oxygen, her oxygen sats were only in the 70s. At this time, consultation was obtained with the hospitalist and the heater planer operator. She was given Lasix, electrolytes, and various blood studies were drawn. She had a bedside cardiac ultrasound and that revealed congestive heart failure. She was transferred to the unit and further evaluated by the heater planer operator and the facing cutting machine operator and she was felt to be suffering from cardiomyopathy and arrangements were made to transfer her to [facility]. While she was here, she was given several doses of Lasix and promptly put out in the next several hours over a liter of urine. I did talk to the patient's and her mother and grandmother and explained to them the nature of her illness and the reason for her transfer and what the prognosis could possibly be.
[2016-11-23] MEDS ORDERED: BISACODYL 5 MG TABEC PO ONE (21:00)
[2016-11-24] MEDS ORDERED: BISACODYL 10 MG SUPP PR PRN (02:00)
== END 2016-11-22 23:55 | disposition short-term general hospital (02) | DRG 765 ==
LOC: C.LD 23:06 → C.OPB 23:06 → C.LD 23:59 → C.OPB 23:59 → C.OBG 11-22 05:32 → C.MSICU 11-22 19:15
PROVIDERS: ADMIT Obstetrics & Gynecology; ATTEND Obstetrics & Gynecology
PROC: 10D00Z1 Extraction of Products of Conception, Low, Open Approach (ICD-10-PCS; principal; 2016-11-22 00:27)
DX: O60.14X1 Preterm labor third trimester with preterm delivery third trimester, fetus 1 (principal); O90.3 Peripartum cardiomyopathy; J96.01 Acute respiratory failure with hypoxia; I50.21 Acute systolic (congestive) heart failure; O99.43 Diseases of the circulatory system complicating the puerperium; O86.4 Pyrexia of unknown origin following delivery; O30.003 Twin pregnancy, unspecified number of placenta and unspecified number of amniotic sacs, third trimester; R00.0 Tachycardia, unspecified; O99.53 Diseases of the respiratory system complicating the puerperium; O16.5 Unspecified maternal hypertension, complicating the puerperium; E87.79 Other fluid overload; O60.14X2 Preterm labor third trimester with preterm delivery third trimester, fetus 2; O64.0XX2 Obstructed labor due to incomplete rotation of fetal head, fetus 2; O34.29 Maternal care due to uterine scar from other previous surgery; N85.8 Other specified noninflammatory disorders of uterus; O67.9 Intrapartum hemorrhage, unspecified; Z37.2 Twins, both liveborn; Z3A.33 33 weeks gestation of pregnancy; Z79.899 Other long term (current) drug therapy; Z87.891 Personal history of nicotine dependence

== ENCOUNTER → 2016-11-30 | Outpatient (CLI) | payer OTHER ==
[~2016-11-30] MED LIST changes: +TYL325X PO
== END | disposition home or self-care (01) ==
LOC: C.LAB 10:42
PROVIDERS: ATTEND Obstetrics & Gynecology
DX: Z98.890 Other specified postprocedural states (principal)

== ENCOUNTER → 2016-12-28 | Outpatient (CLI) | payer OTHER | END | disposition home or self-care (01) | LOC: C.PAPS 14:59 | PROVIDERS: ATTEND Obstetrics & Gynecology | DX: Z39.2 Encounter for routine postpartum follow-up (principal) ==

== ENCOUNTER 2017-08-04 11:24 | Emergency (ER) | payer OTHER ==
[~2017-08-04] VITALS: Ht 165.1 cm; Wt 56.4 kg
[2017-08-04 11:28] VITALS: TEMP 36.5; Ht 165.1 cm; Wt 56.4 kg
[2017-08-04] MEDS ORDERED: PROCHLORPERAZINE 5 MG/ML 2 ML VIAL IV STA (12:34)
[2017-08-04] MEDS ORDERED: SODIUM CHLORIDE 0.9% 500ML 500 ML IV STA (12:34)
[2017-08-04] MEDS ORDERED: DiphenhydrAMINE HCL 50 MG/ML VIAL IV STA (12:34)
[2017-08-04] MEDS ORDERED: SUMA25TA PO (12:38)
[2017-08-04] MEDS ORDERED: DEXAMETHASONE SOD INJ 10 MG/ML VIAL IV ONE (12:45)
[2017-08-04 12:51] LABS: BASO % 0.2 %; BASO ABS # 0.01 K/uL (0-0.2); COMPLETE YES; EOS % 4.8 %; HEMATOCRIT 40.1 % (37-47); LYMPH % 39.7 %; LYMPH ABS # 1.66 K/uL (1.2-3.4); MEAN CORPUSCULAR HEMOGLOBIN 30.1 pg (25-34); MEAN CORPUSCULAR HGB CONC 35.4 g/dl (32-36); MEAN PLATELET VOLUME 10.4 fL (7.4-10.4); MONO % 6.2 %; NEUT % 49.1 %; PLATELET COUNT 198 K/uL (130-400); RED BLOOD COUNT 4.72 M/uL (4.2-5.4); WHITE BLOOD COUNT 4.18 K/uL (4.8-10.8)
[2017-08-04 13:02] LABS: ALT/SGPT 17 U/L (12-78); BLOOD UREA NITROGEN 18 mg/dl (7-18); BUN/CREATININE RATIO 24.2 (10-20); CALCIUM 8.6 mg/dl (8.5-10.1); CARBON DIOXIDE 27 mmol/L (21-32); CHLORIDE 107 mmol/L (98-107); CREATININE 0.74 mg/dl (0.60-1.20); GLUCOSE 93 mg/dl (70-99); POTASSIUM 3.9 mmol/L (3.5-5.1); SODIUM 140 mmol/L (136-145)
[2017-08-04 13:08] LABS: ALKALINE PHOSPHATASE 47 U/L (45-117); AST/SGOT 10 U/L (15-37)
--- NOTE | 2017-08-04 13:33 | DIAGNOSTIC IMAGING REPORT ---
CHEST ONE VIEW PORTABLE CLINICAL HISTORY: Chest pain. COMPARISON STUDY: Chest radiograph January 20, 2015. FINDINGS: There is no pneumothorax or pleural effusion. Nipple shadow projects over the right lower lung. Hazy apparent bilateral lower lung opacities are likely due to overlying soft tissues and may be related to breast implants. No consolidation is identified. Cardiomediastinal silhouette is normal. Pulmonary vascularity is normal. IMPRESSION: No acute cardiopulmonary findings. Electronically signed by: Sean Alfredo M.D. 08/04/2017 1:32 PM Dictated Date/Time: 08/04/2017 1:31 PM
[2017-08-04 14:31] VITALS: BP 110/79; PULSE 84; O2SAT 98
--- NOTE | 2017-08-04 15:34 | EMERGENCY ROOM VISIT NOTE ---
History First contact with patient: 12:00 Chief Complaint: HEADACHE Stated Complaint: MIGRAINE, CP, N, SIDES OF NECK PAIN History of Present Illness The patient is a 36 year old female who presents to the Emergency Room with complaints of a migraine headache, neck pain/ tightness, upper chest pain and a migraine headache. The patient reports a history of chronic migraines. The patient is under the management of Dr. Farley with the [facility]. She has prescriptions for Imitrex, Flexeril and Zofran as needed for migraines. The patient reports that she has had increasing frequency of migraines since November of this year when she was transferred to [facility] with congestive heart failure during with twins. The patient admits that she has been under a lot of stress over the past few months with her 8-month- old twins. In addition to her current stress level, she also reports a history of chronic neck pain which she and her doctor thinks may be precipitating her migraines. The patient's last Imitrex dosing was this morning around 9:50 AM when she then developed an upper chest pressure and neck tightness, along with her typical global headache, nausea, photophobia and phonophobia. She did call her family doctor's office who suggested that she come to the emergency department given her CHF history. The patient reports that she is no longer taking diuretics. She has not noticed any recent peripheral edema, shortness of breath, dyspnea on exertion or orthopnea. The patient reports that her migraine is improving at this point, rating her discomfort a 5 out of 10. Review of Systems HEENT: Denies dizziness, visual problems, hearing loss, tinnitus. Denies difficulty swallowing or oral lesions. PULMONARY: Denies cough, shortness of breath, sputum production or hemoptysis. CARDIOVASCULAR: Denies palpitations, dyspnea on exertion, orthopnea or peripheral edema. GASTROINTESTINAL: Denies diarrhea, constipation, nausea, vomiting, or abdominal pain. GENITOURINARY: Denies dysuria, frequency, urgency or nocturia. NEUROLOGIC: History of migraines. Denies CVA or TIA. MUSCULOSKELETAL: Denies history of joint tenderness/swelling. SKIN: Denies rashes or lesions. PSYCHIATRIC: Denies history of depression or mental illness. ENDOCRINE: Denies history of diabetes or thyroid disorders. Past Medical/Surgical History Medical Problems: (1) Active labor (2) with third trimester bleeding (3) with third trimester bleeding (4) prior myomectomy full thickness (5) twins 33 weeks 2 days (6) Volume overload Surgical Problems: (1) S/P section Family History Migraines Social History Smoking Status: Never Smoker Alcohol Use: occasionally Marital Status: single Housing Status: lives with significant other Current/Historical Medications Scheduled Sumatriptan Succinate (Imitrex), 25 MG PO PRN Physical Exam Vital Signs Date Time Temp Pulse Resp B/P (MAP) Pulse Ox O2 Delivery O2 Flow Rate FiO2 08/04/17 14:31 84 22 110/79 98 08/04/17 13:00 77 20 109/71 96 Room Air 08/04/17 12:30 68 20 110/81 95 Room Air 08/04/17 12:01 79 08/04/17 11:51 Room Air 08/04/17 11:28 36.5 82 18 113/75 98 Room Air Physical Exam CONSTITUTIONAL: Healthy and well nourished. Alert and oriented X 3 with positive affect. Patient is resting in a darkened room. She appears in mild to moderate discomfort. HEENT: Normocephalic, atraumatic. Pupils equal, round and reactive. Patient is photophobic, precluding funduscopic exam. NECK: Full active range of motion without discomfort. She has mild tenderness to palpation of the cervical musculature and paraspinous muscles. No obvious palpable spasms. No JVD or carotid bruits appreciated. RESPIRATORY: Clear to auscultation bilaterally with no wheezing, crackles, rhonchi or stridor. CARDIOVASCULAR: Regular rate and rhythm with no murmurs, rubs or gallops. GASTROINTESTINAL: Bowel sounds present in all quadrants. Soft and nontender to palpation. MUSCULOSKELETAL: Full range of motion of all joints without discomfort. INTEGUMENTARY: No rash or other significant dermatologic conditions noted. HEMATOLOGIC: No ecchymosis or petechiae noted. NEUROLOGIC: No focal neurologic deficits noted. Medical Decision & Procedures ER Provider Diagnostic Interpretation: My interpretation of an ECG shows a normal sinus rhythm of [address] elevation or other conduction abnormalities. My interpretation of a portable chest x-ray does not show any consolidations, pneumothorax or evidence for failure pattern. Radiologist report is as follows: CHEST ONE VIEW PORTABLE CLINICAL HISTORY: Chest pain. COMPARISON STUDY: Chest radiograph January 20, 2015. FINDINGS: There is no pneumothorax or pleural effusion. Nipple shadow projects over the right lower lung. Hazy apparent bilateral lower lung opacities are likely due to overlying soft tissues and may be related to breast implants. No consolidation is identified. Cardiomediastinal silhouette is normal. Pulmonary vascularity is normal. IMPRESSION: No acute cardiopulmonary findings. Laboratory Results 08/04/17 12:00 Red Blood Count 4.72, Mean Corpuscular Volume 85.0, Mean Corpuscular Hemoglobin 30.1, Mean Corpuscular Hemoglobin Concent 35.4, Mean Platelet Volume 10.4, Neutrophils (%) (Auto) 49.1, Lymphocytes (%) (Auto) 39.7, Monocytes (%) (Auto) 6.2, Eosinophils (%) (Auto) 4.8, Basophils (%) (Auto) 0.2, Neutrophils # (Auto) 2.05, Lymphocytes # (Auto) 1.66, Monocytes # (Auto) 0.26, Eosinophils # (Auto) 0.20, Basophils # (Auto) 0.01 08/04/17 12:00 Test 08/04/17 12:00 White Blood Count 4.18 K/uL (4.8-10.8) Red Blood Count 4.72 M/uL (4.2-5.4) Hemoglobin 14.2 g/dL (12.0-16.0) Hematocrit 40.1 % (37-47) Mean Corpuscular Volume 85.0 fL (80-100) Mean Corpuscular Hemoglobin 30.1 pg (25-34) Mean Corpuscular Hemoglobin Concent 35.4 g/dl (32-36) Platelet Count 198 K/uL (130-400) Mean Platelet Volume 10.4 fL (7.4-10.4) Neutrophils (%) (Auto) 49.1 % Lymphocytes (%) (Auto) 39.7 % Monocytes (%) (Auto) 6.2 % Eosinophils (%) (Auto) 4.8 % Basophils (%) (Auto) 0.2 % Neutrophils # (Auto) 2.05 K/uL (1.4-6.5) Lymphocytes # (Auto) 1.66 K/uL (1.2-3.4) Monocytes # (Auto) 0.26 K/uL (0.11-0.59) Eosinophils # (Auto) 0.20 K/uL (0-0.5) Basophils # (Auto) 0.01 K/uL (0-0.2) RDW Standard Deviation 38.2 fL (36.4-46.3) RDW Coefficient of Variation 12.4 % (11.5-14.5) Immature Granulocyte % (Auto) 0.0 % Immature Granulocyte # (Auto) 0.00 K/uL (0.00-0.02) D-Dimer 220 ug/L FEU (0-500) Anion Gap 7.0 mmol/L (3-11) Est Creatinine Clear Calc Drug Dose 92.7 ml/min Estimated GFR () 120.0 Estimated GFR (Non- 103.5 BUN/Creatinine Ratio 24.2 (10-20) Calcium Level 8.6 mg/dl (8.5-10.1) Total Bilirubin 0.6 mg/dl (0.2-1) Direct Bilirubin 0.2 mg/dl (0-0.2) Aspartate Amino Transf (AST/SGOT) 10 U/L (15-37) Alanine Aminotransferase (ALT/SGPT) 17 U/L (12-78) Alkaline Phosphatase 47 U/L (45-117) Total Creatine Kinase 55 U/L (26-192) Troponin I < 0.015 ng/ml (0-0.045) Pro-B-Type Natriuretic Peptide 25 pg/ml (0-450) Total Protein 7.6 gm/dl (6.4-8.2) Albumin 4.0 gm/dl (3.4-5.0) Lipase 207 U/L (73-393) The above labs were reviewed. Medications Administered Medications (Trade) Dose Ordered Sig/Sae Route Start Time Stop Time Status Last Admin Dose Admin Diphenhydramine HCl (Benadryl Inj) 25 mg NOW STAT IV 08/04/17 12:34 08/04/17 12:38 DC 08/04/17 12:55 25 MG Prochlorperazine Edisylate (Compazine Inj) 10 mg NOW STAT IV 08/04/17 12:34 08/04/17 12:38 DC 08/04/17 12:54 10 MG Dexamethasone Sodium Phosphate (Decadron Inj) 10 mg NOW ONCE IV 08/04/17 12:45 08/04/17 12:46 DC 08/04/17 12:55 10 MG Sodium Chloride 500 ml @ 999 mls/hr Q31M STAT IV 08/04/17 12:34 08/04/17 13:04 DC 08/04/17 12:54 999 MLS/HR Procedure 1. IV hydration: Normal saline 500 mL bolus 2. IV medications: Benadryl 25 mg, Compazine 10 mg and Decadron 10 mg IVP ED Course Patient history and physical exam were performed. Nurse's notes were reviewed. Vital signs were reviewed and were normal. Given the patient's prior history of migraines and CHF, I did explain that further cardiac workup was warranted. The patient and mother were in agreement. IV access was established, and labs were drawn. The patient was hydrated with normal saline, and received IV medications as discussed in the previous Procedure section. Review of labs does not show any acute findings. D-dimer, troponin and BNP are normal. An ECG and portable chest x-ray were also normal. On final reevaluation, the patient reported significant relief of her migraine headache, rating her discomfort a 2 out of 10. The patient requested discharge home. The patient's case was also discussed with Dr. Lyn, ED attending physician, who agrees with current workup and outpatient plan of management. I did encourage the patient to rest and remain well-hydrated. She was encouraged to continue with her migraine medications as needed for any rebound migraine. She was encouraged to follow-up with her PCP for further reevaluation. I also suggested discussing a referral to the [facility] since her migraine could be secondary to cervical etiology. The patient would likely benefit from an MRI as well, which can also be discussed with her PCP. The patient was happy with plan of care, voiced understanding of all discharge instructions, and was discharged with her . Medical Decision Patient presents to the emergency department with complaint of a migraine headache. She also developed upper chest discomfort and neck pain after taking Imitrex. The patient has not had this reaction before, but the patient was advised that Imitrex concerned because the side effects. Her workup today is not suggestive of any acute cardiopulmonary etiology, including CHF, myocardial infarction, pulmonary embolus, pneumonia or pneumothorax. The patient is afebrile and has no leukocytosis to suggest infectious etiology. The patient gives no history, nor did she have physical exam findings to suggest CVA/TIA or thromboembolic event. The patient does report a history of chronic chronic neck pain, therefore the patient could have a cervicogenic headache/migraine. [place] Drug Monitoring Program Search Results: patient reviewed within database Medication Reconcilliation Current Medication List: was personally reviewed by me Blood Pressure Screening Patient's blood pressure: Normal blood pressure Impression Primary Impression: Migraine Additional Impression: Medication side effect Departure Information Referrals Veronica Farley D.O. (PCP) Patient Instructions My [facility] Problem Qualifiers Primary Impression: Migraine Migraine type: unspecified Status migrainosus presence: without status migrainosus Intractability: not intractable Qualified Codes: G43.909 - Migraine, unspecified, not intractable, without status migrainosus Additional Impression: Medication side effect Encounter type: initial encounter Qualified Codes: T88.7XXA - Unspecified adverse effect of drug or medicament, initial encounter
== END 2017-08-04 14:32 | disposition home or self-care (01) ==
LOC: C.EDB 11:27 → C.EDC 14:32
DX: G43.909 Migraine, unspecified, not intractable, without status migrainosus (principal); T88.7XXA Unspecified adverse effect of drug or medicament, initial encounter; X58.XXXA Exposure to other specified factors, initial encounter

== ENCOUNTER 2018-01-07 08:50 | Emergency (ER) | payer OTHER ==
[~2018-01-07] VITALS: Ht 162.6 cm; Wt 55.1 kg
[2018-01-07 08:57] VITALS: Ht 162.6 cm; Wt 55.1 kg
[2018-01-07] MEDS ORDERED: MoRPHine SULFATE 10 MG/ML CARP/VIAL IM STA (09:12)
[2018-01-07] MEDS ORDERED: ONDANSETRON 4MG OD TAB PO STA (09:12)
[2018-01-07] MEDS ORDERED: PRED-301 PO (09:26)
--- NOTE | 2018-01-07 10:04 | DIAGNOSTIC IMAGING REPORT ---
L SHOULDER MIN 2 VIEWS ROUTINE CLINICAL HISTORY: Fall, L shoulder pain COMPARISON: None. FINDINGS: Alignment of the left shoulder is anatomic. No acute fracture is identified. A left breast implant is partially imaged. IMPRESSION: No acute fracture or dislocation of the left shoulder. Electronically signed by: Sean Alfredo M.D. 01/07/2018 10:02 AM Dictated Date/Time: 01/07/2018 10:01 AM
[2018-01-07] MEDS ORDERED: OXYC1TAB3 PO (10:22)
[2018-01-07] MEDS ORDERED: ONDA4TAB10 SL (10:22)
--- NOTE | 2018-01-07 10:24 | EMERGENCY ROOM VISIT NOTE ---
History First contact with patient: 09:05 Chief Complaint: FALL Stated Complaint: FELL DOWN STEPS, INJURED ARM AND SHOULDER History of Present Illness The patient is a 37 year old female who presents to the Emergency Room via private vehicle accompanied by female with complaints of "fell down steps, injured arm and shoulder". The patient states that earlier today around 7 AM she was ambulating down a set of carpeted stairs when she slipped, and notes that she was holding onto the railing with her left arm and she continue to hold onto this as she fell causing twisting and popping in her left shoulder. She notes pain rated as a 10/10 in the left shoulder region. She states that she fell down approximately 6 steps. She notes only pain in the left shoulder region. No numbness/tingling in the distal extremity. She denies any syncopal event. Review of Systems A complete 6-point Review of Systems was discussed with the patient, with pertinent positives and negatives listed in the History of Present Illness. All remaining Review of Systems questions can be considered negative unless otherwise specified. Past Medical/Surgical History Medical Problems: (1) Active labor (2) with third trimester bleeding (3) with third trimester bleeding (4) prior myomectomy full thickness (5) twins 33 weeks 2 days (6) Volume overload Surgical Problems: (1) S/P section Social History Smoking Status: Former Smoker Alcohol Use: occasionally Marital Status: single Housing Status: lives with significant other Current/Historical Medications Scheduled Ondasetron Odt (Zofran Odt), 4 MG SL Q6H Sumatriptan Succinate (Imitrex), 25 MG PO PRN Scheduled PRN Oxycodone Ir (Roxicodone Ir), 1-2 TAB PO Q6 PRN for Pain Miscellaneous Medications Prednisone (Prednisone), 5 MG PO Physical Exam Vital Signs Date Time Temp Pulse Resp B/P (MAP) Pulse Ox O2 Delivery O2 Flow Rate FiO2 01/07/18 11:11 36.7 74 18 140/92 96 01/07/18 08:57 36.7 84 18 137/97 96 Room Air Physical Exam VITAL SIGNS - Vital signs and nursing notes were reviewed. Stable. GENERAL -37-year-old female appearing her stated age who is in no acute distress. Communicates well with provider and answers questions appropriately. SKIN - Without rashes. No petechial or meningeal rash. Skin is intact overlying left shoulder. HEAD - NC/AT. EYES - Sclera anicteric. EARS - No deformities of external structures noted on gross examination bilaterally. NOSE - Midline and without cyanosis. No epistaxis or purulent drainage noted. MOUTH/OROPHARYNX - Without perioral cyanosis. NECK -no C-spine tenderness. LUNGS - Chest wall symmetric without accessory muscle use, intercostals retractions, or central cyanosis. Normal vesicular breath sounds CTA B/L. No wheezes, rales, or rhonchi appreciated. CARDIAC - RRR with S1/S2. No murmur, rubs, or gallops appreciated. EXTREMITIES - No clubbing or peripheral cyanosis. No pretibial edema present. Tenderness to palpation overlying the entire left shoulder joint. No distal extremity tenderness. Decreased range of motion of the left shoulder secondary to pain. She is neurovascularly intact in the distal extremity. +5/5 strength noted in UE/LE Medical Decision & Procedures ER Provider Diagnostic Interpretation: L SHOULDER MIN 2 VIEWS ROUTINE CLINICAL HISTORY: Fall, L shoulder pain COMPARISON: None. FINDINGS: Alignment of the left shoulder is anatomic. No acute fracture is identified. A left breast implant is partially imaged. IMPRESSION: No acute fracture or dislocation of the left shoulder. Electronically signed by: Sean Alfredo M.D. 01/07/2018 10:02 AM Dictated Date/Time: 01/07/2018 10:01 AM Medications Administered Medications (Trade) Dose Ordered Sig/Sae Route Start Time Stop Time Status Last Admin Dose Admin Morphine Sulfate (MoRPHine SULFATE INJ) 6 mg NOW STAT IM 01/07/18 09:12 01/07/18 09:13 DC 01/07/18 09:20 6 MG Ondansetron HCl (Zofran Odt) 4 mg NOW STAT PO 01/07/18 09:12 01/07/18 09:14 DC 01/07/18 09:20 4 MG Medical Decision Patient was seen and evaluated as above in room a 11. She presents to us today with left shoulder pain status post fall. She is nontoxic on exam.After obtaining a thorough history and physical examination the above work up was performed. Review was performed of nursing notes and vital signs. X-ray was obtained and compared to previous x-rays no acute process is noted. I suspect she likely has a rotator cuff injury. Arm sling was applied. For pain she was given IM morphine and Zofran for any potential nausea. She is to follow with her established orthopedic surgeon of which she is already seeing for her left shoulder. She is to call as soon as possible to schedule follow-up. She will be given a short prescription of pain medication. She also given Zofran for any nausea noting that she does have a reaction to this medication causing nausea. No true allergy. No red flags in the PDMP. The patient was educated upon management, had questions answered prior to discharge, and was discharged home in good condition. In the evaluation and treatment of this patient, the following differential diagnoses were considered: Shoulder Contusion, Shoulder Fracture, Shoulder Dislocation, Thoracic Outlet Syndrome, Adhesive Capsulitis, Rotator Cuff Tear, Proximal Clavicle Head Fracture, Apical Pneumonia, Pneumothorax, Hemothorax, or TB. Impression Primary Impression: Fall Additional Impression: Shoulder pain, left Departure Information Dispostion Home / Self-Care Condition GOOD Prescriptions Ondasetron Odt (ZOFRAN ODT) 4 Mg Tab 4 MG SL Q6H for Nausea, #20 TAB Prov: Wale Palomo PA-C 01/07/18 Oxycodone Ir (Roxicodone Ir) 5 Mg Tab 1-2 TAB PO Q6 Y for Pain, #15 TAB For Initial Treatment Prov: Wale Palomo PA-C 01/07/18 Referrals Veronica Farley D.O. (PCP) Patient Instructions My [facility] Additional Instructions You have been treated in the Emergency Department for L Shoulder Pain. You have received pain medicine in the emergency department which impairs your ability to operate a vehicle. It is illegal for you to drive after receiving these medicines. You have been prescribed Oxy IR to be used for pain control. This is a narcotic medication. You cannot drive or consume alcohol while on this medicine. This medicine should only be used for pain that cannot be controlled with over-the- counter pain medicines. Zofran 1 tablet every 8 hours sublingually for nausea. This is because the pain meds can make your nauseous. For pain control, you can use the following [id number] medicines (if >12 yo): - Regular strength (325mg/tab) Tylenol (acetaminophen) 2 tabs every 4-6 hours as needed. Do not exceed 12 tablets in a 24 hour period. Avoid taking more than 3 grams (3000 mg) of Tylenol per day. This includes any other sources of acetaminophen you may take on a regular basis. - Regular strength (200 mg/tab) Advil (ibuprofen) 1-2 tabs every 4-6 hours as needed. Do not exceed a dose of 3200 mg per day. If this is a recent injury (<24 hrs), ice can be applied to the area of pain for the first 3 days to help decrease pain and inflammation. Please call your orthopedic surgeon Keep the shoulder brace/sling in place until evaluated by Orthopedics. Continue to perform range of motion exercises several times per day to help prevent the development of a "frozen shoulder". Return to the Emergency Department if your current symptoms worsen despite treatment course outlined above, or if you develop any of the following symptoms : intractable pain despite aforementioned treatment course or new onset of numbness or tingling of the arm. Problem Qualifiers
[2018-01-07 11:11] VITALS: BP 140/92; PULSE 74; TEMP 36.7; O2SAT 96
[2018-01-07] MEDS ORDERED: SUMA25TA PO (12:38)
== END 2018-01-07 11:12 | disposition home or self-care (01) ==
LOC: C.EDB 08:51 → C.EDA 11:12
DX: M79.602 Pain in left arm (principal); W10.9XXA Fall (on) (from) unspecified stairs and steps, initial encounter; Z87.891 Personal history of nicotine dependence